=== PATIENT | female | born 1950 | race Caucasian/White ===

== ENCOUNTER 2023-08-06 14:10 | Outpatient (OUT) | payer MEDICARE, SELFPAY ==
--- NOTE | 2023-08-06 14:42 | XR_ITS ---
The [address] [address] Patient Name: ALONZO PRESTON MRN: [id number] date: 1950 Sex: F Assigned Patient Location: [facility] Current Patient Location: Accession/Order Number: [id number] Exam Date: 08/06/2023 14:32 Report Date: 08/07/2023 07:42 At the request of: DEANNE SON Procedure: XR lumbar spine 6V w bending EXAMINATION: XR lumbar spine 6V w bending HISTORY: lumbosacral spondylosis without myelopathy M47.817 ; low back pain radiating into right leg for 2 weeks COMPARISON: XR L-spine 01/26/2019 FINDINGS: BONES: Scoliotic curvature of lumbar spine. Prior mechanical fusion L4-5-S1 via bilateral pedicle screws and rods; no hardware fracture. Posterior decompression L4 and L5. No change in alignment during flexion and extension. DISC SPACES: Moderate-marked narrowing L2-3, L3 on 4. Intervertebral disc spacers L4-5, L5-S1. PARASPINOUS: Negative. No paraspinous abnormality is seen. OTHER: Negative. XR/XR lumbar spine 6V w bending IMPRESSION: 1. Grossly stable surgical changes and multilevel moderate-marked degenerative changes. 2. No appreciable acute abnormality. Electronically authenticated by: SANDY BALLARD Date: 08/07/2023 07:42
== END 2023-08-06 14:11 | disposition home or self-care (01) ==
LOC: LAB 14:13 → RAD 14:16
PROVIDERS: PCP Internal Medicine; Visit Provider Physician Assistant
DX: M47.817 Spondylosis without myelopathy or radiculopathy, lumbosacral region (principal); M51.36 Other intervertebral disc degeneration, lumbar region
CPT/HCPCS: 72114

== ENCOUNTER 2023-11-12 08:32 | Outpatient (OUT) | payer MEDICARE, SELFPAY ==
--- NOTE | 2023-11-12 09:05 | MM_ITS ---
Patient Name: ALONZO PRESTON MR#: [id number] : 1950 Exam Date: 11/12/2023 Ordering Doctor: DR GURPREET RIVERA M.D. RADIOLOGY REPORT PROCEDURE: MM TOMOSYNTHESIS SCREENING BI COMPARISON: MG MAMM SCREEN 3D SUBHASH CAD, 03/07/2021. MG MAMM SCREEN SUBHASH W CAD, 02/09/2020. MG MAMM SCREEN SUBHASH W CAD, 12/17/2018. MG MAMM SCREEN SUBHASH W CAD, 11/04/2014. INDICATIONS: Screening Calculator Name NCI Breast Cancer Risk Assessment Tool 5 Year Breast Cancer Risk 1.80% Lifetime Breast Cancer Risk 4.90% Personal Breast Cancer No Personal Ovarian Cancer No Treatments None Family Cancers None LOCATION: [facility] BREAST COMPOSITION: The breasts are heterogeneously dense,which may obscure small masses. FINDINGS: DIAGNOSTIC CATEGORY 1--NEGATIVE. RIGHT BREAST: No significant suspicious finding. No significant change has occurred. LEFT BREAST: No significant suspicious finding. No significant change has occurred. RECOMMENDATIONS: ROUTINE MAMMOGRAM AND CLINICAL EVALUATION IN 12 MONTHS. PLEASE NOTE: A NORMAL MAMMOGRAM DOES NOT EXCLUDE THE POSSIBILITY OF BREAST CANCER. A CLINICALLY SUSPICIOUS PALPABLE LUMP SHOULD BE BIOPSIED. Dictated by: Yony Wayne M.D. on 11/12/2023 at 15:49 Approved by: Yony Wayne M.D. on 11/12/2023 at 15:53
--- NOTE | 2023-11-12 09:05 | XR_ITS ---
[address] [address] Patient Name: ALONZO PRESTON MRN: [id number] date: 1950 Sex: F Assigned Patient Location: [facility] Current Patient Location: [facility] Accession/Order Number: [id number] Exam Date: 11/12/2023 08:45 Report Date: 11/12/2023 16:05 At the request of: GURPREET RIVERA Procedure: XR DEXA axial skeleton EXAMINATION: XR DEXA axial skeleton HISTORY: Estrogen Deficiency E28.39 COMPARISON: DEXA bone densitometry 03/07/2021 TECHNIQUE: Dual-energy X-ray absorptiometry (DXA) was performed. FINDINGS: FOREARM ANALYSIS: Average bone mineral density is 0.474 g/cm2. T-score (standard deviation relative to young adult mean): -3.4 . +1.8% change since prior study. HIP ANALYSIS: Lowest bone mineral density is within the left femoral neck, 0.698 g/cm2. T-score (standard deviation relative to young adult mean): -2.4 . -4.5% change since prior study. XR/XR DEXA axial skeleton IMPRESSION: World Health Organization Classification: Osteoporosis - High Fracture Risk FRAX: Cannot be calculated. Pharmacologic treatment recommendations * No uniform recommendation applies to all patients. Management plans must be individualized. * Consider initiating pharmacologic treatment in postmenopausal women and men >= 50 years of age who have the following: Primary fracture prevention: * T-score <= - 2.5 at the femoral neck, total hip, lumbar spine, 33% radius (some uncertainty with existing data) by DXA. * Low bone mass (osteopenia: T-score between - 1.0 and - 2.5) at the femoral neck or total hip by DXA with a 10-year hip fracture risk >= 3% or a 10-year major osteoporosis-related fracture risk >= 20% (i.e., clinical vertebral, hip, forearm, or proximal humerus) based on the [place]-adapted FRAXregistered model. Secondary fracture prevention: * Fracture of the hip or vertebra regardless of BMD [4, 5]. * Fracture of proximal humerus, pelvis, or distal forearm in persons with low bone mass (osteopenia: T-score between - 1.0 and - 2.5). The decision to treat should be individualized in persons with a fracture of the proximal humerus, pelvis, or distal forearm who do not have osteopenia or low BMD [12, 13]. Marybeth MS, Eric SL, Merle KL, Sindhu EM, Luan KG, AJ, Lenin ES. The clinician's guide to prevention and treatment of osteoporosis. Osteoporos Int. 2021;33(10):2072-8665. doi: 10.1007/e40308-920-76051-f. Epub 2021Sep 07. Erratum in: Osteoporos Int. 2021Dec 07;: PMID: [id number]; PMCID: [id number]. Electronically authenticated by: SANDY BALLARD Date: 11/12/2023 16:05
== END 2023-11-12 08:33 | disposition home or self-care (01) ==
LOC: MAMMO 08:32
PROVIDERS: PCP Internal Medicine; Visit Provider Internal Medicine
DX: Z12.31 Encounter for screening mammogram for malignant neoplasm of breast (principal); E28.39 Other primary ovarian failure; M81.0 Age-related osteoporosis without current pathological fracture
CPT/HCPCS: 77063; 77067; 77080

== ENCOUNTER 2024-06-01 08:47 | Emergency (ER) | payer MEDICARE, SELFPAY ==
[2024-06-01 08:51] VITALS: BP 137/79; PULSE 72; TEMP 36.6; O2SAT 98; BMI 19.5
--- NOTE | 2024-06-01 08:55 | XR_ITS ---
The [address] [address] Patient Name: ALONZO PRESTON MRN: [id number] date: 1950 Sex: F Assigned Patient Location: ER Current Patient Location: ER Accession/Order Number: [id number] Exam Date: 06/01/2024 09:00 Report Date: 06/01/2024 09:48 At the request of: LEON KANG Procedure: XR wrist LT min 3V EXAM: XR forearm LT 2V, XR wrist LT min 3V, XR hand LT min 3V HISTORY: injury c/o pain COMPARISON: None. XR/XR wrist LT min 3V IMPRESSION: 1. No acute fracture or malalignment. If clinical concern for scaphoid fracture or anatomic snuffbox tenderness, suggest follow-up radiographs in 7-10 days. 2. 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 There are minimal degenerative changes of the second through fifth proximal and distal interphalangeal joints with scattered periarticular calcifications. 3. Chondrocalcinosis in the expected location of the triangular fibrocartilage complex. Electronically authenticated by: ALCEIA WELLS Date: 06/01/2024 09:48
--- NOTE | 2024-06-01 08:55 | XR_ITS ---
The [address] [address] Patient Name: ALONZO PRESTON MRN: [id number] date: 1950 Sex: F Assigned Patient Location: ER Current Patient Location: ER Accession/Order Number: [id number] Exam Date: 06/01/2024 09:00 Report Date: 06/01/2024 09:48 At the request of: LEON KANG Procedure: XR forearm LT 2V EXAM: XR forearm LT 2V, XR wrist LT min 3V, XR hand LT min 3V HISTORY: injury c/o pain COMPARISON: None. XR/XR forearm LT 2V IMPRESSION: 1. No acute fracture or malalignment. If clinical concern for scaphoid fracture or anatomic snuffbox tenderness, suggest follow-up radiographs in 7-10 days. 2. 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 There are minimal degenerative changes of the second through fifth proximal and distal interphalangeal joints with scattered periarticular calcifications. 3. Chondrocalcinosis in the expected location of the triangular fibrocartilage complex. Electronically authenticated by: ALECIA WELLS Date: 06/01/2024 09:48
--- NOTE | 2024-06-01 08:55 | XR_ITS ---
The [address] [address] Patient Name: ALONZO PRESTON MRN: [id number] date: 1950 Sex: F Assigned Patient Location: ER Current Patient Location: ER Accession/Order Number: [id number] Exam Date: 06/01/2024 09:00 Report Date: 06/01/2024 09:48 At the request of: LEON KANG Procedure: XR hand LT min 3V EXAM: XR forearm LT 2V, XR wrist LT min 3V, XR hand LT min 3V HISTORY: injury c/o pain COMPARISON: None. XR/XR hand LT min 3V IMPRESSION: 1. No acute fracture or malalignment. If clinical concern for scaphoid fracture or anatomic snuffbox tenderness, suggest follow-up radiographs in 7-10 days. 2. 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 There are minimal degenerative changes of the second through fifth proximal and distal interphalangeal joints with scattered periarticular calcifications. 3. Chondrocalcinosis in the expected location of the triangular fibrocartilage complex. Electronically authenticated by: ALECIA WELLS Date: 06/01/2024 09:48
[2024-06-01] MEDS: KETOROLAC TROMETHAMINE 30 MG/ML VIAL 15 MG IM (09:50)
[2024-06-01 10:20] VITALS: BP 136/86; PULSE 76; O2SAT 99
--- NOTE | 2024-06-01 10:45 | ED.UPPEXIN1 ---
HPI HPI - Extremity Injury (Upper) General Chief Complaint: Extremity Injury, Upper Stated Complaint: SWOLLEN WRIST Time Seen by Provider: 06/01/24 08:56 Source: patient Mode of arrival: walk-in Limitations: no limitations History of Present Illness HPI narrative: The patient presented to us with a left hand and wrist pain that she developed yesterday after falling, mentioned that she fell at work and she did not hit her head but she fell on her left arm No loss of consciousness no other concerns she did take some ibuprofen earlier this morning Related Data Previous Rx's ?Medication ?Instructions ?Recorded diclofenac sodium 50 mg 50 mg PO Q12H PRN pain #14 tabs 06/01/24 tablet,delayed release Allergies Allergy/AdvReac Type Severity Reaction Status Date / Time No Known Drug Allergies Allergy Verified 06/01/24 08:51 Opioid HPI Opioid Management Most Recent Pain and Opioid Data: Last Pain Scale 8 06/01/24 09:50 06/01/24 Last MAR Pain Assessment 06/01/24 09:50 Review of Systems ROS Status of ROS 10 or more systems reviewed and unremarkable except as noted in history and below PFSH PFSH Social History Little interest or pleasure in doing things: not at all Feeling down, depressed, or hopeless: not at all Exam Narrative Exam Narrative: Nurses notes and vital signs reviewed and patient is not hypoxic. Left upper extremity; the patient have tenderness upon palpation of the distal forearm and mostly the whole wrist is tender but there is no significant edema noted, patient does have full range of movement in the wrist and the fingers of the hand The patient have no deformity that is obvious good capillary refill and radial pulse No specific tenderness at the only the scaphoid area but the patient had tenderness all over the wrist General: Well-appearing and in no apparent distress. Skin: Warm, dry, no pallor noted. No rash. Head: Normocephalic, atraumatic. Neck: Supple, non-tender. Constitutional Vital Signs, click to edit/add: Last Vital Signs Temp 98 F 06/01/24 08:51 Pulse 76 06/01/24 10:20 Resp 16 06/01/24 10:20 BP 136/86 06/01/24 10:20 Pulse Ox 99 06/01/24 10:20 O2 Del Method Room Air 06/01/24 10:20 Course Vital Signs Vital signs: Vital Signs Temperature 98 F 06/01/24 08:51 Pulse Rate 72 06/01/24 08:51 Respiratory Rate 20 06/01/24 08:51 Blood Pressure 137/79 06/01/24 08:51 Pulse Oximetry 98 06/01/24 08:51 Oxygen Delivery Method Room Air 06/01/24 08:51 Temperature 98 F 06/01/24 08:51 Pulse Rate 76 06/01/24 10:20 Respiratory Rate 16 06/01/24 10:20 Blood Pressure 136/86 06/01/24 10:20 Pulse Oximetry 99 06/01/24 10:20 Oxygen Delivery Method Room Air 06/01/24 10:20 MDM - Extremity Injury (Upper) MDM Narrative Medical decision making narrative: The patient x-ray showed no acute pathology but with her current presentation she was advised after applying a Velcro splint that she need to rest her hand and follow-up within 7 days for another x-ray in case of continuous pain Right now the patient was just provided with Voltaren for the pain after she was provided Toradol here It is recommended for her work that she have to rest her left hand for at least 7 days and to rule out fracture and another x-ray Patient work comp filled according to above-mentioned plan Discharge Plan Discharge Chief Complaint: Extremity Injury, Upper Clinical Impression: Contusion of left wrist Patient Disposition: Home, Self-Care Time of Disposition Decision: 10:05 Condition: Good Mode of Transportation: Private Vehicle Prescriptions / Home Meds: New diclofenac sodium 50 mg tablet,delayed release (DR/EC) 50 mg PO Q12H PRN (Reason: pain) Qty: 14 0RF Print Language: [place] Citizen Instructions: Wrist Injury (ED), Contusion in Adults (ED) Referrals: GURPREET RIVERA [Primary Care Provider] - 1 week Discharge Date/Time: 06/01/24 10:20
== END 2024-06-01 10:20 | disposition home or self-care (01) ==
PROVIDERS: Emergency Provider Emergency Medicine; PCP Internal Medicine
DX: S60.212A Contusion of left wrist, initial encounter (principal); W19.XXXA Unspecified fall, initial encounter
CPT/HCPCS: 73090; 73110; 73130; 96372; 99284; J1885